=== PATIENT | female | born 1995 | race Caucasian/White ===

== ENCOUNTER 2021-04-01 17:28 | Emergency (ER) | payer OTHER ==
[~2021-04-01] VITALS: Ht 170.2 cm; Wt 99.8 kg
== END 2021-04-01 20:39 | disposition home or self-care (01) ==
LOC: ER 17:28
DX: R22.1 Localized swelling, mass and lump, neck (principal)

== ENCOUNTER 2021-05-22 02:08 | Emergency (ER) | payer OTHER ==
[~2021-05-22] VITALS: Ht 170.2 cm; Wt 95.3 kg
[2021-05-22] MEDS ORDERED: ACETAMINOPHEN650 M2 PO (07:18)
[2021-06-06] MEDS ORDERED: ACETAMINOPHEN650 M2 (21:04)
== END 2021-05-22 07:51 | disposition home or self-care (01) ==
LOC: ER 02:08
DX: O26.891 Other specified pregnancy related conditions, first trimester (principal); Z3A.01 Less than 8 weeks gestation of pregnancy

== ENCOUNTER → 2021-09-09 | Emergency (ER) | payer OTHER ==
[~2021-09-09] VITALS: Ht 170.2 cm; Wt 93.9 kg
[~2021-09-09] MED LIST: ACETAMINOPHEN650 M2; ACETAMINOPHEN650 M2 PO
== END | disposition left against medical advice (07) ==
LOC: ER 22:33
DX: Z53.21 Procedure and treatment not carried out due to patient leaving prior to being seen by health care provider (principal)

== ENCOUNTER 2022-02-05 12:21 | Emergency (ER) | payer OTHER ==
[~2022-02-05] VITALS: Ht 170.2 cm; Wt 95.3 kg
== END 2022-02-05 17:37 | disposition home or self-care (01) ==
LOC: ER 12:21
DX: N76.0 Acute vaginitis (principal)

== ENCOUNTER → 2022-05-09 | Emergency (ER) | payer OTHER ==
[~2022-05-09] VITALS: Ht 170.2 cm; Wt 104.3 kg
[~2022-05-09] MED LIST changes: +CLARITIN10 M1 PO; +NORFLEX100MG PO
== END | disposition home or self-care (01) ==
LOC: ER 07:54
DX: B34.9 Viral infection, unspecified (principal); Z20.822 Contact with and (suspected) exposure to COVID-19

== ENCOUNTER 2022-05-23 11:39 | Emergency (ER) | payer OTHER ==
[~2022-05-23] VITALS: Ht 170.2 cm; Wt 104.3 kg
== END 2022-05-23 14:51 | disposition home or self-care (01) ==
LOC: ER 11:39
DX: R10.9 Unspecified abdominal pain (principal); R53.81 Other malaise; B34.9 Viral infection, unspecified; I10 Essential (primary) hypertension; Z20.822 Contact with and (suspected) exposure to COVID-19

== ENCOUNTER 2022-08-30 12:37 | Emergency (ER) | payer OTHER ==
[~2022-08-30] VITALS: Ht 170.2 cm; Wt 99.8 kg
== END 2022-08-30 14:50 | disposition home or self-care (01) ==
LOC: ER 12:37
DX: U07.1 COVID-19 (principal)